=== PATIENT | female | born 1975 | race Caucasian/White ===

== ENCOUNTER 2016-09-07 20:26 | Emergency (ER) | payer SELFPAY ==
[~2016-09-07] VITALS: Wt 68.0 kg
[~2016-09-07 20:26] MED LIST: ACULAR 3ML 3 ML5 ML OPH; ADDERALL30 MG PO; ANTIBIOTIC O500 U/GM TP; ATIVAN1 MG PO; CEPHALEXIN500 M1 PO; HYDROCODONE BIT1 T11 PO; IBU800 MG PO; MOTRIN800 MG PO; Motrin,Rufen800 MG PO; PROZAC10 MG PO; ROBAXIN750 MG PO; TOBREX OPHTH S2.5 ML OPH; TRAMADOL HCL50 MG PO; TRIMOX500 MG PO; ULTRAM50 MG PO; VENLAFAXINE HYD75 MG PO; WELLBUTRIN SR150 MG PO; ZITHROMAX Z PA250 MG PO
[2016-09-07 20:41] VITALS: BP 142/78
[2016-09-07] MEDS ORDERED: ANAPROX DS550 MG PO (21:50)
== END 2016-09-07 20:28 | disposition home or self-care (01) ==
LOC: ED 20:26
DX: S20.211A Contusion of right front wall of thorax, initial encounter (principal); F17.200 Nicotine dependence, unspecified, uncomplicated; Z88.8 Allergy status to other drugs, medicaments and biological substances; W22.8XXA Striking against or struck by other objects, initial encounter; Y93.89 Activity, other specified; Y92.9 Unspecified place or not applicable; Y99.9 Unspecified external cause status

== ENCOUNTER 2016-09-27 09:50 | Emergency (ER) | payer MEDICAID ==
[~2016-09-27] VITALS: Ht 165.1 cm; Wt 65.8 kg
[~2016-09-27 09:50] MED LIST changes: +ANAPROX DS550 MG PO
[2016-09-27 10:11] VITALS: BP 130/60
== END 2016-09-27 11:47 | disposition home or self-care (01) ==
LOC: ED 09:50
DX: R07.81 Pleurodynia (principal); F17.200 Nicotine dependence, unspecified, uncomplicated; Z88.8 Allergy status to other drugs, medicaments and biological substances

== ENCOUNTER → 2017-01-26 | Outpatient (CLI) | payer MEDICARE, MEDICAID | END | disposition home or self-care (01) | LOC: LAB 08:12 | DX: Z79.899 Other long term (current) drug therapy (principal) ==

== ENCOUNTER 2017-02-10 13:37 | Emergency (ER) | payer MEDICAID ==
[~2017-02-10] VITALS: Ht 167.6 cm; Wt 68.0 kg
[2017-02-10 13:48] VITALS: BP 127/75
[2017-02-10] MEDS ORDERED: NAPROSYN500 MG PO (13:52)
== END 2017-02-10 14:47 | disposition home or self-care (01) ==
LOC: ED 13:37
DX: M25.571 Pain in right ankle and joints of right foot (principal); R03.0 Elevated blood-pressure reading, without diagnosis of hypertension; F17.200 Nicotine dependence, unspecified, uncomplicated; Z88.8 Allergy status to other drugs, medicaments and biological substances

== ENCOUNTER 2017-02-21 22:37 | Emergency (ER) | payer OTHER, MEDICARE, MEDICAID ==
[~2017-02-21] VITALS: Ht 167.6 cm; Wt 68.0 kg
[~2017-02-21 22:37] MED LIST changes: +NAPROSYN500 MG PO
[2017-02-21 22:45] VITALS: BP 147/80
[2017-02-21] MEDS ORDERED: ZOFRAN ODT4 MG SL (23:43)
[2017-02-21] MEDS ORDERED: ROBAXIN500 M1 PO (23:43)
[2017-02-21] MEDS ORDERED: ANAPROX DS550 MG PO (23:43)
== END 2017-02-21 23:59 | disposition home or self-care (01) ==
LOC: ED 22:37
DX: S06.0X0A Concussion without loss of consciousness, initial encounter (principal); S16.1XXA Strain of muscle, fascia and tendon at neck level, initial encounter; F17.200 Nicotine dependence, unspecified, uncomplicated; Z98.51 Tubal ligation status; Z88.8 Allergy status to other drugs, medicaments and biological substances; V49.59XA Passenger injured in collision with other motor vehicles in traffic accident, initial encounter; Y93.89 Activity, other specified; Y92.89 Other specified places as the place of occurrence of the external cause; Y99.9 Unspecified external cause status

== ENCOUNTER → 2017-03-08 | Outpatient (CLI) | payer OTHER ==
[~2017-03-08] MED LIST changes: +ROBAXIN500 M1 PO; +ZOFRAN ODT4 MG SL; +ZOFRAN4 MG PO
== END | disposition home or self-care (01) ==
LOC: RESCLI 04:11
DX: S09.90XS Unspecified injury of head, sequela (principal); R23.2 Flushing; E66.3 Overweight; F90.9 Attention-deficit hyperactivity disorder, unspecified type; Z72.0 Tobacco use; Z71.6 Tobacco abuse counseling; Z88.6 Allergy status to analgesic agent; X58.XXXS Exposure to other specified factors, sequela

== ENCOUNTER 2017-03-10 15:11 | Emergency (ER) | payer OTHER, MEDICARE ==
[~2017-03-10] VITALS: Ht 167.6 cm; Wt 72.6 kg
[~2017-03-10 15:11] MED LIST changes: -ZOFRAN4 MG PO
[2017-03-10 15:28] VITALS: BP 113/47
[2017-03-10] MEDS ORDERED: ZOFRAN4 MG PO (16:41)
== END 2017-03-10 16:39 | disposition home or self-care (01) ==
LOC: ED 15:11
DX: F07.81 Postconcussional syndrome (principal); F17.200 Nicotine dependence, unspecified, uncomplicated; Z88.8 Allergy status to other drugs, medicaments and biological substances

== ENCOUNTER → 2017-03-14 | Outpatient (CLI) | payer OTHER, MEDICARE ==
[~2017-03-14] MED LIST changes: +ZOFRAN4 MG PO
== END | disposition home or self-care (01) ==
LOC: MRI 03:02
DX: R51 Headache (principal); H53.8 Other visual disturbances; R11.0 Nausea; R42 Dizziness and giddiness; R11.10 Vomiting, unspecified; S09.90XS Unspecified injury of head, sequela; X58.XXXS Exposure to other specified factors, sequela

== ENCOUNTER → 2017-03-15 | Outpatient (CLI) | payer MEDICARE | END | disposition home or self-care (01) | LOC: RESCLI 01:02 | DX: S09.90XS Unspecified injury of head, sequela (principal); R23.2 Flushing; E66.3 Overweight; F90.9 Attention-deficit hyperactivity disorder, unspecified type; Z72.0 Tobacco use; Z71.6 Tobacco abuse counseling; Z88.6 Allergy status to analgesic agent; X58.XXXS Exposure to other specified factors, sequela ==

== ENCOUNTER → 2017-03-29 | Outpatient (CLI) | payer MEDICARE | END | disposition home or self-care (01) | LOC: RESCLI 03-28 01:46 | DX: S09.90XS Unspecified injury of head, sequela (principal); R23.2 Flushing; E66.3 Overweight; F90.9 Attention-deficit hyperactivity disorder, unspecified type; J04.2 Acute laryngotracheitis; M94.0 Chondrocostal junction syndrome [Tietze]; R03.0 Elevated blood-pressure reading, without diagnosis of hypertension; Z72.0 Tobacco use; Z71.6 Tobacco abuse counseling; Z88.6 Allergy status to analgesic agent; X58.XXXD Exposure to other specified factors, subsequent encounter ==

== ENCOUNTER → 2017-07-13 | Outpatient (CLI) | payer MEDICARE | END | disposition home or self-care (01) | LOC: MRI 13:54 | DX: M48.02 Spinal stenosis, cervical region (principal); S13.4XXS Sprain of ligaments of cervical spine, sequela; H53.8 Other visual disturbances; M25.78 Osteophyte, vertebrae; X58.XXXS Exposure to other specified factors, sequela ==

== ENCOUNTER → 2017-09-07 | Outpatient (CLI) | payer MEDICARE | END | disposition home or self-care (01) | LOC: RAD 10:20 | DX: M41.9 Scoliosis, unspecified (principal) ==

== ENCOUNTER 2018-10-10 22:00 | Emergency (ER) | payer MEDICARE, MEDICAID ==
[~2018-10-10] VITALS: Ht 167.6 cm; Wt 72.6 kg
[~2018-10-10 22:00] MED LIST changes: +SEPTDS PO
[2018-10-10 22:03] VITALS: BP 120/61
[2018-10-10] MEDS ORDERED: KENALOG 0.025%15 GM T (23:50)
[2018-10-10] MEDS ORDERED: CEPHALEXIN500 M1 PO (23:50)
== END 2018-10-11 00:16 | disposition home or self-care (01) ==
LOC: ED 22:00
DX: R60.0 Localized edema (principal); M79.644 Pain in right finger(s); L53.9 Erythematous condition, unspecified; Z88.8 Allergy status to other drugs, medicaments and biological substances

== ENCOUNTER 2022-08-22 21:20 | Emergency (ER) | payer MEDICARE, MEDICAID ==
[~2022-08-22 21:20] MED LIST changes: +KENALOG 0.025%15 GM T
[2022-08-22 21:44] LABS: BASO # 0.1 10*3/uL (0.0-0.1); BASO % 0.7 % (0.0-1.0); EOS # 0.6 10*3/uL (0.0-0.4); EOS % 5.5 % (1.0-4.0); HEMATOCRIT 38.4 % (37.0-47.0); LYMPH # 3.1 10*3/uL (1.3-4.4); LYMPH % 29.3 % (27.0-41.0); MEAN CELL VOLUME 88.5 fl (81.0-99.0); MEAN CORPUSCULAR HGB 28.3 pg (27.0-31.0); MEAN PLATELET VOLUME 9.5 fl (9.6-12.3); MONO # 0.7 10*3/uL (0.1-1.0); MONO % 6.3 % (3.0-9.0); NEUT # 6.1 10*3/uL (2.3-7.9); NEUT % 57.9 % (47.0-73.0); PLATELET COUNT AUTOMATED 357 10*3/uL (130-400); RED BLOOD COUNT 4.34 10*6/uL (4.10-5.10); RED CELL DISTRI WIDTH 13.8 % (0-14.5); WHITE BLOOD COUNT 10.5 10*3/uL (4.8-10.8)
[2022-08-22 21:54] LABS: ACT PARTIAL THROMBO TIME 25.1 SECONDS (20.0-32.1)
[2022-08-22 22:00] LABS: ALKALINE PHOSPHATASE 95 U/L (46-116); BUN 11 mg/dl (9-23); CHLORIDE 105 mmol/L (98-107); POTASSIUM 3.8 mmol/L (3.4-5.1); SGPT/ALT 14 U/L (10-49); TOTAL PROTEIN 6.6 gm/dL (6.0-8.0)
[2022-08-22 23:15] VITALS: BP 114/65
== END 2022-08-23 00:10 | disposition home or self-care (01) ==
LOC: ED 21:20
PROVIDERS: Internal Medicine
DX: R07.89 Other chest pain (principal); F41.9 Anxiety disorder, unspecified; R05.9 Cough, unspecified; Z88.8 Allergy status to other drugs, medicaments and biological substances; Z98.51 Tubal ligation status; Z98.890 Other specified postprocedural states

== ENCOUNTER 2022-12-19 20:22 | Emergency (ER) | payer MEDICARE, MEDICAID ==
[2022-12-20] MEDS ORDERED: JOCK ITCH RELIE14 GM T (21:15)
== END 2022-12-19 21:44 | disposition left against medical advice (07) ==
LOC: ED 20:22
DX: R21 Rash and other nonspecific skin eruption (principal); Z53.21 Procedure and treatment not carried out due to patient leaving prior to being seen by health care provider

== ENCOUNTER 2022-12-20 20:14 | Emergency (ER) | payer MEDICARE ==
[~2022-12-20] VITALS: Ht 167.6 cm; Wt 65.8 kg
[2022-12-20 20:35] VITALS: BP 113/85
[2022-12-20] MEDS ORDERED: JOCK ITCH RELIE14 GM T (21:15)
== END 2022-12-21 00:31 | disposition home or self-care (01) ==
LOC: ED 20:14
DX: B35.8 Other dermatophytoses (principal); F90.9 Attention-deficit hyperactivity disorder, unspecified type; Z88.8 Allergy status to other drugs, medicaments and biological substances; Z98.890 Other specified postprocedural states

== ENCOUNTER → 2024-01-18 | Outpatient (CLI) | payer MEDICARE ==
[~2024-01-18] MED LIST changes: +JOCK ITCH RELIE14 GM T; +Regadenoson 0.4 MG/5 ML SYR IV ONE
== END | disposition home or self-care (01) ==
LOC: MRI 01-15 14:00 → CARD 01:12 → MAMMO 11:30
PROVIDERS: ATTEND Nurse Practitioner
DX: Z12.31 Encounter for screening mammogram for malignant neoplasm of breast (principal); R07.89 Other chest pain; R06.02 Shortness of breath; F17.210 Nicotine dependence, cigarettes, uncomplicated; R26.89 Other abnormalities of gait and mobility; R41.3 Other amnesia; R51.9 Headache, unspecified; Z82.49 Family history of ischemic heart disease and other diseases of the circulatory system